=== PATIENT | female | born 1985 | race Two or more races ===

== ENCOUNTER 2019-01-12 15:23 | Inpatient (IN) | payer SELFPAY ==
[~2019-01-12] VITALS: Ht 143.5 cm; Wt 63.0 kg
[2019-01-12 16:14] LABS: BILIRUBIN,URINE NEGATIVE (NEG); CLARITY,URINE CLEAR; COLOR,URINE YELLOW; NITRITE,URINE NEGATIVE (NEG); PROTEIN,URINE NEGATIVE (NEG-TRACE); UROBILINOGEN,URINE 0.2 mg/dL (0.2 mg/dL)
[2019-01-12 16:22] LABS: BASO # 0.1 x10^3/uL (0.0-0.2); BASO % 1 % (0-3); EOS # 0.2 x10^3/uL (0.0-0.7); EOS % 3 % (0-3); HEMATOCRIT 40.6 % (36.0-47.0); HEMOGLOBIN 13.5 g/dL (12.0-15.5); LYMPH # 1.4 x10^3/uL (1.0-4.8); LYMPH % 22 % (24-48); MEAN CORPUSCULAR HEMOGLOBIN 30 pg (25-35); MEAN CORPUSCULAR HGB CONC 33 g/dL (31-37); MEAN CORPUSCULAR VOLUME 90 fL (79-100); MONO # 0.5 x10^3/uL (0.0-1.1); MONO % 7 % (0-9); NEUT # 4.2 x10^3uL (1.8-7.7); NEUT % 67 % (31-73); PLATELET COUNT 150 x10^3/uL (140-400); RED CELL DISTRIBUTION WIDTH 15.6 % (11.5-14.5); WHITE BLOOD COUNT 6.2 x10^3/uL (4.0-11.0)
[2019-01-12 16:22] LABS: BACTERIA,URINE MODERATE /HPF (0-FEW); RBC,URINE 0 /HPF (0-2); SQUAMOUS EPITHELIAL CELL,UR MOD /LPF
[2019-01-12 16:40] LABS: PLT ESTIMATE ADEQUATE (ADEQUATE)
[2019-01-12 16:46] LABS: ALBUMIN/GLOBULIN RATIO 0.7 (1.0-1.7); CALCIUM 8.4 mg/dL (8.5-10.1); CREATININE 0.6 mg/dL (0.6-1.0); GFR 114.4; POTASSIUM 3.9 mmol/L (3.5-5.1); TOTAL BILIRUBIN 0.3 mg/dL (0.2-1.0); TOTAL PROTEIN 7.1 g/dL (6.4-8.2)
[2019-01-12] MEDS ORDERED: fentaNYL PF VIAL 100 MCG/2 ML VIAL IV PRN (18:00)
[2019-01-12] MEDS ORDERED: IBUPROFEN 400 MG TABLET. PO PRN (18:00)
[2019-01-12] MEDS ORDERED: LIDOCAINE 1% PF 30 ML VIAL. INJ PRN (18:00)
[2019-01-12] MEDS ORDERED: OXYTOCIN 30 UNIT/500 ML PREMIX 500 ML IV PRN ×2 (18:00)
[2019-01-12] MEDS ORDERED: 0.9 % SODIUM CHLORIDE 10 ML DISP.SYRIN. IV PRN (18:00)
[2019-01-12 18:15] VITALS: BP 148/91
[2019-01-12] MEDS ORDERED: DINOPROSTONE 10 MG SUPP.VAG VG ONE (18:30)
[2019-01-12] MEDS: IV RINGERS,LACTATED 1000ML 1,000 ML IV PRN (18:43)
[2019-01-12] MEDS ORDERED: ACETAMINOPHEN 500 MG TABLET PO PRN (23:00)
[2019-01-13] MEDS: IV RINGERS,LACTATED 1000ML 1,000 ML IV PRN ×2 (01:44→22:38)
[2019-01-13] MEDS ORDERED: BUTORPHANOL 2 MG/ML VIAL. IV PRN (01:45)
[2019-01-13] MEDS ORDERED: L&D EPIDURAL SYRINGE 50 ML ONE (02:54)
[2019-01-13] MEDS ORDERED: ROPIVacaine 0.2% PF 10 ML VIAL. ONE ×2 (02:54→03:00)
[2019-01-13] MEDS ORDERED: L&D EPIDURAL 50 ML SYRINGE. ONE (03:00)
[2019-01-13] MEDS ORDERED: HYDROCORTISONE 1% TOPICAL OINTMENT 30GM TUBE. TP PRN (03:45)
[2019-01-13] MEDS ORDERED: BENZOCAINE 20% TOPICAL AEROSOL SPRAY 57GM CAN. TP PRN (03:45)
[2019-01-13] MEDS ORDERED: SIMETHICONE 80 MG TAB.CHEW PO PRN ×2 (03:45→09:00)
[2019-01-13] MEDS ORDERED: 0.9 % SODIUM CHLORIDE 10 ML DISP.SYRIN. IV PRN ×2 (03:45→09:00)
[2019-01-13] MEDS ORDERED: ACETAMINOPHEN 325 MG TABLET. PO PRN (03:45)
[2019-01-13] MEDS ORDERED: ZOLPIDEM 5 MG TABLET. PO PRN ×2 (03:45→09:00)
[2019-01-13] MEDS ORDERED: PHENYLEPH/MINERAL OIL/PETROLAT RECTAL OINTMENT 28GM TUBE. RC PRN (03:45)
[2019-01-13] MEDS ORDERED: OXYTOCIN 30 UNIT/500 ML PREMIX 500 ML IV PRN ×2 (03:45→09:00)
[2019-01-13] MEDS ORDERED: MAG HYDROX/ALUMINUM HYD/SIMETH 30 ML ORAL.SUSP PO PRN ×2 (03:45→09:00)
[2019-01-13] MEDS ORDERED: diphenhydrAMINE HCL 25 MG CAPSULE PO PRN (03:45)
[2019-01-13] MEDS ORDERED: MAGNESIUM HYDROXIDE 2,400 MG/30 ML ORAL.SUSP. PO PRN (03:45)
--- NOTE | 2019-01-13 03:55 | PDOC1 ---
OB - History Hx of Present Care: Good Care Ultrasounds: Normal mid trimester US Obstetrical Complications: Gestational Hypertension Medical Complications: None Past Family/Social History * Past Medical, Surgical, Family and Obstetric Histories reviewed from chart. Blood Type: O+ Rubella: Immune RPR/VDRL: Negative GBS Status: Positive HBsAG: Negative OB - Chief Complaint & HPI Date of Admission: Date of Admission: Jan 12, 2019 at 15:23 Chief Complaint/History : 5 Reason for admission: induction of labor Indication for induction: other (PIH) Admission Nurse Assessment Rev: Yes OB - Admission Exam Physical Exam Vitals: VS - Last 72 Hours, by Label Date Time Temp Pulse Resp B/P (MAP) Pulse Ox O2 Delivery O2 Flow Rate FiO2 01/13/19 01:44 20 Room Air 01/12/19 18:15 97.7 87 16 148/91 (110) Room Air 97.7 Heart: Regular Rate Lungs: Clear, Equal Abdomen: Gravid Extremities: Normal Pulses, No tenderness or swelling Reflexes: Normal Cervical Dilatation: 2cm Effacement: 0% Station: Ballotable Membranes: Intact Amniotic Fluid: Clear Heart Rate: Normal Accelerations: Accelerations Present Short Term Variability: Present Contractions on Admission: >10 Minutes Apart Intensity: Mild Assessment/Plan Assessment/Plan TIUP PIH Induction ACSVD JOHNATHAN SANCHEZ MD Jan 13, 2019 03:55
[2019-01-13] MEDS ORDERED: IBUPROFEN 400 MG TABLET. PO SCH (06:00)
[2019-01-13] MEDS ORDERED: PENICILLIN G K 5,000,000 UNIT in IV DEXTROSE 5% 100ML 100 ML IV ONE (06:00)
[2019-01-13] MEDS ORDERED: LIDOCAINE 2% PF 5 ML VIAL. ONE (06:20)
[2019-01-13] MEDS ORDERED: ROCURONIUM 100 MG/10 ML VIAL. ONE (07:59)
[2019-01-13] MEDS ORDERED: FERROUS SULFATE 325 MG TABLET. PO SCH (08:00)
[2019-01-13] MEDS ORDERED: GLYCOPYRROLATE 1 MG/5 ML VIAL. ONE (08:00)
[2019-01-13] MEDS ORDERED: ROCURONIUM 50 MG/5 ML VIAL. ONE (08:00)
[2019-01-13] MEDS ORDERED: miSOPROStol 200 MCG TABLET ONE ×2 (08:00→08:15)
[2019-01-13] MEDS ORDERED: NEOSTIGMINE 10 MG/10 ML VIAL. ONE (08:01)
[2019-01-13] MEDS ORDERED: DEXAMETHASONE SOD PHOS 4 MG/ML VIAL ONE (08:10)
[2019-01-13] MEDS ORDERED: ONDANSETRON PF 4 MG/2 ML VIAL. ONE (08:10)
[2019-01-13] MEDS ORDERED: KETOROLAC 30 MG/ML INJ FOR OR. INJ ONE (08:10)
[2019-01-13] MEDS ORDERED: ISOFLURANE 31 TO 60 MINUTES. IH ONE ×2 (08:20)
[2019-01-13] MEDS ORDERED: OXYTOCIN 10 UNIT/ML VIAL. ONE (08:27)
[2019-01-13] MEDS ORDERED: IBUPROFEN 400 MG TABLET. PO PRN (09:00)
[2019-01-13] MEDS ORDERED: ONDANSETRON PF 4 MG/2 ML VIAL. IV PRN (09:00)
[2019-01-13] MEDS ORDERED: diphenhydrAMINE ORAL ELIXIR 12.5 MG/5 ML ML PO PRN (09:00)
--- NOTE | 2019-01-13 09:00 | PDOC4 ---
OB Operative Note Date: Jan 13, 2019 PRE OP DIAGNOSIS: NRFHT (LOT arrest) POST OP DIAGNOSIS: Other (same) OPERATION PERFORMED: Darek KT Surgeon Dr. Wright Water Trainer Dr. Benavides Anesthesia: Gen Blood Loss 700 ml Specimen placenta and infant OB Findings: Position (Transverse), Sex, (arterial pH 6.7, and BE -21) Complications none Additional Remarks pt. stable. to be transferred to [facility] DEE WRIGHT Jr, MD Jan 13, 2019 09:00
--- NOTE | 2019-01-13 09:25 | OP ---
DATE OF SURGERY: PREOPERATIVE DIAGNOSES: 1. A 38-1/2 weeks intrauterine . 2. Gestational hypertension. 3. intolerance to labor. POSTOPERATIVE DIAGNOSES: 1. A 38-1/2 weeks intrauterine . 2. Gestational hypertension. 3. intolerance to labor. 4. Left occipital transverse arrest. PROCEDURE: Primary low transverse section. SURGEON: Dee Wright MD INTELLIGENCE MANAGER: Dr. Benavides. ANESTHESIA: GETA. ESTIMATED BLOOD LOSS: 700 mL. COMPLICATIONS: None. FINDINGS: Viable male infant. Arterial pH 6.7, base excess negative 21. 3-vessel cord placenta delivered manually. SUMMARY: A 33-year-old 5, para 3, A1, at 38-1/2 weeks, presented to Labor and Delivery for induction of labor secondary to gestational hypertension. The patient was placed on Cervidil for induction. The patient did go into active labor with Cervidil. She had dilated up to 9 cm and was in left occiput transverse arrest along with intolerance to labor. The decision was then made to do emergency section. The patient was counseled on risks, benefits and expectations and voiced clear understanding and agreed to proceed. DESCRIPTION OF PROCEDURE: The patient was taken to surgery suite and placed in dorsal supine position where she was prepped with ChloraPrep and draped in a sterile fashion. After adequate anesthesia, a Pfannenstiel skin incision was made with scalpel down to and through the fascia. Fascia was extended laterally using curved Carrillo scissors. The anterior and posterior fascia was dissected away from the abdominal rectus muscles using blunt dissection. The abdominal rectus muscle dissected bluntly at the midline. Peritoneum was entered bluntly as well. Bladder blade was used for retraction purposes along with the Dyer. Low transverse hysterotomy incision made with a scalpel down to the . The hysterotomy incision was extended laterally and superiorly digitally. The infant was in the left occiput transverse position and very low in the pelvis. Once elevated, the infant flipped to a breech presentation in which the legs and hips were delivered with fundal pressure. The was delivered down to the subscapular area. The arms were then flexed and delivered over the chest. The head was also delivered in atraumatic manner. Infant was suctioned with bulb syringe orally and nasally. Umbilical cord was clamped twice and cut and viable male infant was handed to waiting nursing staff. Umbilical cord blood and arterial pH gases were then obtained. Three-vessel cord placenta was delivered manually. The uterus was then exteriorized and cleared of clot and debris with moist lap. The hysterotomy incision was reapproximated using 1-0 Vicryl suture in running locked fashion and imbricated layer of 1-0 Vicryl suture in running fashion was performed. Three mqhagt-er-ieile sutures were placed using 4-0 Vicryl for better hemostasis over the hysterotomy incision. There was 800 mcg Cytotec that was placed intrauterinely prior to closure of the hysterotomy incision. The uterus then palpated firm. Fallopian tubes and ovaries appeared normal bilaterally. Posterior cul-de-sac was cleared of clot and debris with a moist lap. The uterus then returned to the abdomen. Pericolic gutters were cleared of clot and debris with moist lap. The hysterotomy incision was reviewed and was hemostatic. Victoriano was placed over the hysterotomy incision for better hemostasis. The peritoneum was then reapproximated using 1-0 Vicryl suture in running fashion. The muscle was reapproximated using 1-0 Vicryl suture in a mattress stitch. The fascia was reapproximated using a V-Loc suture in a running fashion. The skin was reapproximated using 4-0 Vicryl suture in subcuticular manner. The patient tolerated the procedure well, was sent to recovery room in stable condition. Sponge and needle count correct x 3. DEE WRIGHT MD DR: RHYS/radha JOB#: [id number] / [id number]
[2019-01-13] MEDS ORDERED: PENICILLIN G K 2,500,000 UNIT in IV DEXTROSE 5% 50 ML IV SCH (10:00)
[2019-01-13 11:45] VITALS: BP_SYST 101; BP_SYST 97; BP_DIAS 62; BP_DIAS 64
[2019-01-13 13:30] VITALS: BP 126/78
[2019-01-13 17:06] VITALS: BP 131/86
[2019-01-13] MEDS: KETOROLAC 30 MG/ML VIAL. IV PRN (20:00)
[2019-01-13 20:03] VITALS: BP 137/85
[2019-01-14 00:49] VITALS: BP 131/84
[2019-01-14] MEDS: IV RINGERS,LACTATED 1000ML 1,000 ML IV PRN (02:42)
[2019-01-14] MEDS: KETOROLAC 30 MG/ML VIAL. IV PRN (02:43)
[2019-01-14 05:00] VITALS: BP 128/80
[2019-01-14] MEDS: oxyCODONE/APAP 5/325 1 TAB TABLET PO PRN ×3 (05:34→16:19)
[2019-01-14] MEDS: DOCUSATE SODIUM 100 MG CAPSULE. PO PRN ×3 (05:34→20:14)
[2019-01-14 08:23] LABS: BASO % 0 % (0-3); EOS % 0 % (0-3); HEMATOCRIT 28.6 % (36.0-47.0); HEMOGLOBIN 9.8 g/dL (12.0-15.5); LYMPH % 12 % (24-48); MEAN CORPUSCULAR HEMOGLOBIN 32 pg (25-35); MEAN CORPUSCULAR HGB CONC 34 g/dL (31-37); MEAN CORPUSCULAR VOLUME 91 fL (79-100); MONO # 0.7 x10^3/uL (0.0-1.1); MONO % 9 % (0-9); NEUT # 6.6 x10^3uL (1.8-7.7); NEUT % 78 % (31-73); PLATELET COUNT 92 x10^3/uL (140-400); RED BLOOD COUNT 3.13 x10^6/uL (3.50-5.40); RED CELL DISTRIBUTION WIDTH 15.8 % (11.5-14.5); WHITE BLOOD COUNT 8.5 x10^3/uL (4.0-11.0)
--- NOTE | 2019-01-14 08:42 | PDOC ---
OB Progress Note Date of Service 01/14/19 Time of Evaluation 0840 Notes Pt. feeling well. Pain controlled. No complaints. Lab Laboratory Tests Test 01/12/19 16:00 01/12/19 16:05 01/12/19 18:30 01/14/19 07:50 Urine Collection Type Unknown Urine Color Yellow Urine Clarity Clear Urine pH 6.0 Urine Specific Charlotte 1.010 Urine Protein Negative mg/dL (NEG-TRACE) Urine Glucose (UA) Negative mg/dL (NEG) Urine Ketones (Stick) Negative mg/dL (NEG) Urine Blood Negative (NEG) Urine Nitrite Negative (NEG) Urine Bilirubin Negative (NEG) Urine Urobilinogen Dipstick 0.2 mg/dL (0.2 mg/dL) Urine Leukocyte Esterase Negative (NEG) Urine RBC 0 /HPF (0-2) Urine WBC 1-4 /HPF (0-4) Urine Squamous Epithelial Cells Mod /LPF Urine Bacteria Moderate /HPF (0-FEW) Urine Random Creatinine 36.0 mg/dL (Not Establ.) Urine Random Total Protein 12.6 mg/dL (Not Establ.) Urine Protein/Creatinine Ratio 350 mg/g (0-200) White Blood Count 6.2 x10^3/uL (4.0-11.0) 8.5 x10^3/uL (4.0-11.0) Red Blood Count 4.50 x10^6/uL (3.50-5.40) 3.13 x10^6/uL (3.50-5.40) Hemoglobin 13.5 g/dL (12.0-15.5) 9.8 g/dL (12.0-15.5) Hematocrit 40.6 % (36.0-47.0) 28.6 % (36.0-47.0) Mean Corpuscular Volume 90 fL (79-100) 91 fL (79-100) Mean Corpuscular Hemoglobin 30 pg (25-35) 32 pg (25-35) Mean Corpuscular Hemoglobin Concent 33 g/dL (31-37) 34 g/dL (31-37) Red Cell Distribution Width 15.6 % (11.5-14.5) 15.8 % (11.5-14.5) Platelet Count 150 x10^3/uL (140-400) 92 x10^3/uL (140-400) Neutrophils (%) (Auto) 67 % (31-73) 78 % (31-73) Lymphocytes (%) (Auto) 22 % (24-48) 12 % (24-48) Monocytes (%) (Auto) 7 % (0-9) 9 % (0-9) Eosinophils (%) (Auto) 3 % (0-3) 0 % (0-3) Basophils (%) (Auto) 1 % (0-3) 0 % (0-3) Neutrophils # (Auto) 4.2 x10^3uL (1.8-7.7) 6.6 x10^3uL (1.8-7.7) Lymphocytes # (Auto) 1.4 x10^3/uL (1.0-4.8) 1.0 x10^3/uL (1.0-4.8) Monocytes # (Auto) 0.5 x10^3/uL (0.0-1.1) 0.7 x10^3/uL (0.0-1.1) Eosinophils # (Auto) 0.2 x10^3/uL (0.0-0.7) 0.0 x10^3/uL (0.0-0.7) Basophils # (Auto) 0.1 x10^3/uL (0.0-0.2) 0.0 x10^3/uL (0.0-0.2) Platelet Estimate Adequate (ADEQUATE) Large Platelets Present Sodium Level 136 mmol/L (136-145) Potassium Level 3.9 mmol/L (3.5-5.1) Chloride Level 103 mmol/L (98-107) Carbon Dioxide Level 22 mmol/L (21-32) Anion Gap 11 (6-14) Blood Urea Nitrogen 14 mg/dL (7-20) Creatinine 0.6 mg/dL (0.6-1.0) Estimated GFR (Cockcroft-Gault) 114.4 BUN/Creatinine Ratio 23 (6-20) Glucose Level 92 mg/dL (70-99) Uric Acid 4.2 mg/dL (2.6-6.0) Calcium Level 8.4 mg/dL (8.5-10.1) Total Bilirubin 0.3 mg/dL (0.2-1.0) Aspartate Amino Transf (AST/SGOT) 27 U/L (15-37) Alanine Aminotransferase (ALT/SGPT) 27 U/L (14-59) Alkaline Phosphatase 235 U/L (46-116) Lactate Dehydrogenase 184 U/L (81-234) Total Protein 7.1 g/dL (6.4-8.2) Albumin 3.0 g/dL (3.4-5.0) Albumin/Globulin Ratio 0.7 (1.0-1.7) Treponema pallidum Antibody Nonreactive (Nonreactive) Laboratory Tests Test 01/14/19 07:50 White Blood Count 8.5 x10^3/uL (4.0-11.0) Red Blood Count 3.13 x10^6/uL (3.50-5.40) Hemoglobin 9.8 g/dL (12.0-15.5) Hematocrit 28.6 % (36.0-47.0) Mean Corpuscular Volume 91 fL (79-100) Mean Corpuscular Hemoglobin 32 pg (25-35) Mean Corpuscular Hemoglobin Concent 34 g/dL (31-37) Red Cell Distribution Width 15.8 % (11.5-14.5) Platelet Count 92 x10^3/uL (140-400) Neutrophils (%) (Auto) 78 % (31-73) Lymphocytes (%) (Auto) 12 % (24-48) Monocytes (%) (Auto) 9 % (0-9) Eosinophils (%) (Auto) 0 % (0-3) Basophils (%) (Auto) 0 % (0-3) Neutrophils # (Auto) 6.6 x10^3uL (1.8-7.7) Lymphocytes # (Auto) 1.0 x10^3/uL (1.0-4.8) Monocytes # (Auto) 0.7 x10^3/uL (0.0-1.1) Eosinophils # (Auto) 0.0 x10^3/uL (0.0-0.7) Basophils # (Auto) 0.0 x10^3/uL (0.0-0.2) Medications Current Medications Sodium Chloride (Normal Saline Flush) 3 ml QSHIFT PRN IV AFTER MEDS AND BLOOD DRAWS; Start 01/12/19 at 18:00; Stop 01/13/19 at 04:08; Status DC Ringer's Solution 1,000 ml @ 125 mls/hr Q8H PRN IV PER PROTOCOL Last administered on 01/14/19at 02:42; Start 01/12/19 at 18:00 Fentanyl Citrate (Fentanyl 2ml Vial) 100 mcg PRN Q1HR PRN IV Severe pain; Start 01/12/19 at 18:00 Lidocaine HCl (Xylocaine 1% Pf 30ml Vial) 30 ml 1X PRN PRN INJ SEE COMMENTS; Start 01/12/19 at 18:00; Stop 01/14/19 at 17:59 Oxytocin/Sodium Chloride 500 ml @ 0 mls/hr CONT PRN IV SEE I/O RECORD; Start 01/12/19 at 18:00; Stop 01/13/19 at 04:08; Status DC Oxytocin/Sodium Chloride 500 ml @ 0 mls/hr CONT PRN PRN IV Post delivery bleeding; Start 01/12/19 at 18:00; Stop 01/13/19 at 04:08; Status DC Ibuprofen (Motrin) 800 mg PRN Q6HRS PRN PO PAIN; Start 01/12/19 at 18:00; Stop 01/13/19 at 04:08; Status DC Penicillin G Potassium 1485869 unit/Dextrose 100 ml @ 100 mls/hr 1X ONCE IV ; Start 01/13/19 at 06:00; Stop 01/14/19 at 06:39; Status DC Penicillin G Potassium [id number] unit/Dextrose 50 ml @ 100 mls/hr Q4H IV ; Start 01/13/19 at 10:00; Stop 01/14/19 at 06:39; Status DC Dinoprostone (Cervidil) 10 mg 1X ONCE VG Last administered on 01/12/19at 18:42; Start 01/12/19 at 18:30; Stop 01/12/19 at 18:31; Status DC Acetaminophen (Tylenol) 1,000 mg PRN Q6HRS PRN PO MILD PAIN Last administered on 01/12/19at 22:59; Start 01/12/19 at 23:00; Stop 01/13/19 at 04:08; Status DC Butorphanol Tartrate (Stadol) 2 mg PRN Q1HR PRN IV SEVERE PAIN Last administered on 01/13/19at 01:44; Start 01/13/19 at 01:45 Ropivacaine (Naropin 0.2%) 10 ml STK-MED ONCE .ROUTE ; Start 01/13/19 at 02:54; Stop 01/13/19 at 02:55; Status DC Ropivacaine/ Fentanyl/NS 50 ml @ As Directed STK-MED ONCE .ROUTE ; Start 01/13/19 at 02:54; Stop 01/13/19 at 02:55; Status DC Sodium Chloride (Normal Saline Flush) 10 ml QSHIFT PRN IV AFTER MEDS AND BLOOD DRAWS; Start 01/13/19 at 03:45 Oxytocin/Sodium Chloride 500 ml @ 62.5 mls/hr CONT PRN IV SEE I/O RECORD Last administered on 01/13/19at 05:11; Start 01/13/19 at 03:45; Stop 01/13/19 at 11:45; Status DC Acetaminophen (Tylenol) 650 mg PRN Q6HRS PRN PO MILD PAIN / TEMP; Start 01/13/19 at 03:45 Ibuprofen (Motrin) 800 mg Q8HRS PO ; Start 01/13/19 at 06:00; Stop 01/13/19 at 06:00; Status DC Ibuprofen (Motrin) 800 mg PRN Q8HRS PRN PO INFLAMMATION/PAIN PREVENTION; Start 01/13/19 at 03:45 Magnesium Hydroxide (Milk Of Magnesia) 2,400 mg PRN DAILY PRN PO CONSTIPATION; Start 01/13/19 at 03:45 Al Hydroxide/Mg Hydroxide (Mylanta Plus Xs) 30 ml PRN Q4HRS PRN PO HEARTBURN / GAS; Start 01/13/19 at 03:45 Simethicone (Gas-X) 80 mg PRN AFTMEALHC PRN PO GAS / BLOATING; Start 01/13/19 at 03:45; Stop 01/13/19 at 09:11; Status DC Diphenhydramine HCl (Benadryl) 25 mg PRN Q6HRS PRN PO ITCHING; Start 01/13/19 at 03:45 Benzocaine (Americaine) 1 spray PRN QID PRN TP TOPICAL PAIN; Start 01/13/19 at 03:45 Phenyleph/Shark Oil/Min Oil/Petrol (Preparation H) 1 galen PRN QID PRN RC RECTAL PAIN; Start 01/13/19 at 03:45 Hydrocortisone (Cortaid) 1 galen PRN QID PRN TP PERINEAL PAIN; Start 01/13/19 at 03:45 Ferrous Sulfate (Feosol) 325 mg BIDWMEALS PO ; Start 01/13/19 at 08:00; Stop 01/13/19 at 09:12; Status DC Zolpidem Tartrate (Ambien) 5 mg PRN QHS PRN PO INSOMNIA, MAY REPEAT X1; Start 01/13/19 at 03:45; Stop 01/13/19 at 09:13; Status DC Info (Do NOT chart on this placeholder) 1 ea 1X PRN PRN MC SEE COMMENTS; Start 01/13/19 at 03:45 Lidocaine HCl (Lidocaine Pf 2% Vial) 5 ml STK-MED ONCE .ROUTE ; Start 01/13/19 at 06:20; Stop 01/13/19 at 06:21; Status DC Rocuronium [place] (Zemuron) 100 mg STK-MED ONCE .ROUTE ; Start 01/13/19 at 07:5 9; Stop 01/13/19 at 08:00; Status DC Rocuronium Madison (Zemuron) 50 mg STK-MED ONCE .ROUTE ; Start 01/13/19 at 08:00; Stop 01/13/19 at 08:04; Status DC Glycopyrrolate (Robinul) 1 mg STK-MED ONCE .ROUTE ; Start 01/13/19 at 08:00; Stop 01/13/19 at 08:04; Status DC Neostigmine Methylsulfate (Bloxiverz) 10 mg STK-MED ONCE .ROUTE ; Start 01/13/19 at 08:01; Stop 01/13/19 at 08:04; Status DC Ketorolac Tromethamine (Toradol For Or Only) 30 mg STK-MED ONCE INJ ; Start 01/13/19 at 08:10; Stop 01/13/19 at 08:11; Status DC Ondansetron HCl (Zofran) 4 mg STK-MED ONCE .ROUTE ; Start 01/13/19 at 08:10; Stop 01/13/19 at 08:11; Status DC Dexamethasone Sodium Phosphate (Decadron) 4 mg STK-MED ONCE .ROUTE ; Start 01/13/19 at 08:10; Stop 01/13/19 at 08:11; Status DC Misoprostol (Cytotec 200mcg Tab) 200 mcg STK-MED ONCE .ROUTE ; Start 01/13/19 at 08:15; Stop 01/13/19 at 08:16; Status DC Isoflurane (Isoflurane) 30 ml STK-MED ONCE IH ; Start 01/13/19 at 08:20; Stop 01/13/19 at 08:21; Status DC Isoflurane (Isoflurane) 30 ml STK-MED ONCE IH ; Start 01/13/19 at 08:20; Stop 01/13/19 at 08:21; Status DC Ropivacaine/ Fentanyl/NS (Ygzwpxfq-Gnqej-JA 3 Mcg-0.1%) 50 ml STK-MED ONCE .ROUTE ; Start 01/13/19 at 03:00; Stop 01/13/19 at 08:24; Status DC Ropivacaine (Naropin 0.2%) 10 ml STK-MED ONCE .ROUTE ; Start 01/13/19 at 03:00; Stop 01/13/19 at 08:24; Status DC Oxytocin (Pitocin) 10 unit STK-MED ONCE .ROUTE ; Start 01/13/19 at 08:27; Stop 01/13/19 at 08:28; Status DC Sodium Chloride (Normal Saline Flush) 3 ml QSHIFT PRN IV AFTER MEDS AND BLOOD DRAWS; Start 01/13/19 at 09:00 Oxytocin/Sodium Chloride 500 ml @ 125 mls/hr CONT PRN IV EXCESSIVE POST- BLEEDING; Start 01/13/19 at 09:00; Stop 01/13/19 at 16:59; Status DC Ibuprofen (Motrin) 800 mg PRN Q4HRS PRN PO INFLAMMATION; Start 01/13/19 at 09:00 Ondansetron HCl (Zofran) 4 mg PRN Q6HRS PRN IV NAUSEA/VOMITING; Start 01/13/19 at 09:00 Docusate Sodium (Colace) 100 mg PRN BID PRN PO CONSTIPATION Last administered on 01/14/19at 05:34; Start 01/13/19 at 09:00 Al Hydroxide/Mg Hydroxide (Mylanta Plus Xs) 30 ml PRN Q4HRS PRN PO HEARTBURN / GAS; Start 01/13/19 at 09:00 Simethicone (Gas-X) 80 mg PRN AFTMEALHC PRN PO GAS / BLOATING Last administered on 01/13/19at 20:00; Start 01/13/19 at 09:00 Diphenhydramine HCl (Benadryl Oral Elixir) 12.5 mg PRN Q6HRS PRN PO ITCHING; Start 01/13/19 at 09:00 Ferrous Sulfate (Feosol) 325 mg BIDWMEALS PO ; Start 01/13/19 at 17:00 Zolpidem Tartrate (Ambien) 5 mg PRN QHS PRN PO INSOMNIA, MAY REPEAT X1; Start 01/13/19 at 09:00 Oxycodone/ Acetaminophen (Percocet 5/325) 2 tab PRN Q4HRS PRN PO MODERATE PAIN, SEVERE PAIN Last administered on 01/14/19at 05:34; Start 01/13/19 at 09:00 Ketorolac Tromethamine (Toradol 30mg Vial) 30 mg PRN Q6HRS PRN IV PAIN Last administered on 01/14/19at 02:43; Start 01/13/19 at 09:00; Stop 01/18/19 at 08:59 Fentanyl Citrate 30 ml @ 0 mls/hr CONT PRN PRN IV PER PROTOCOL Last administered on 01/13/19at 10:07; Start 01/13/19 at 09:00 Exam ABd: soft, mild tenderness, fundus firm Bandage removed. Incision site: dry and intact Assessment POD#1 s/p c/s Plan of Care: Continue current Tx, Mgmt DEE YORK Jr, MD January 14, 2019 08:42
[2019-01-14] MEDS: FERROUS SULFATE 325 MG TABLET. PO SCH ×3 (10:00→16:20)
[2019-01-14] MEDS: IBUPROFEN 400 MG TABLET. PO PRN ×2 (10:29→20:14)
[2019-01-14 11:13] VITALS: BP 114/74
[2019-01-14 14:20] VITALS: BP 116/72
[2019-01-14 22:57] VITALS: BP 132/83
[2019-01-15] MEDS: IBUPROFEN 400 MG TABLET. PO PRN ×3 (04:24→17:48)
[2019-01-15] MEDS: FERROUS SULFATE 325 MG TABLET. PO SCH (07:42)
[2019-01-15] MEDS: DOCUSATE SODIUM 100 MG CAPSULE. PO PRN (07:42)
[2019-01-15] MEDS: oxyCODONE/APAP 5/325 1 TAB TABLET PO PRN ×2 (07:42→14:26)
[2019-01-15] MEDS ORDERED: BISACODYL 10 MG SUPP.RECT. PR PRN (09:15)
--- NOTE | 2019-01-15 10:48 | PDOC3 ---
OB DISCHARGE SUMMARY DATE OF ADMISSION: 01/13/19 DATE OF DISCHARGE: 01/15/19 REASON FOR ADMISSION: Induction of labor INTRAPARTUM PROCEDURES: : Low Cerv Trans DISCHARGE DIAGNOSIS: Term Delivered, Others (Gestational HTN; intolerance to labor) DISCHARGE INFORMATION: Activity (ad lee), Diet (regular), Instructions (pelvic rest x 6 wks, no lifting > 20 lbs. x 4 wks, no driving x 2 wks) HOSPITAL COURSE Term gestation with gestational HTN delivered via section due to intolerance to labor. DEE YORK Jr, MD January 15, 2019 10:48
[2019-01-15] MEDS ORDERED: IBUP-1027 PO (10:51)
[2019-01-15] MEDS ORDERED: FERR325T72 PO (10:51)
[2019-01-15] MEDS ORDERED: OXYC1TAB15 PO (10:51)
[2019-01-15] MEDS ORDERED: DOCU-109 PO (10:51)
--- NOTE | 2019-01-15 10:51 | DISCH ---
DISCHARGE INSTRUCTIONS Condition on Discharge Condition on Discharge: Stable Activity After Discharge Activity Instructions for Disc: Activity as tolerated Lifting Instructions after Dis: No heavy lifting Driving Instructions after Dis: No driving for 2 weeks Diet after Discharge Diet after Discharge: Regular Contacting the [facility] after DC Call your doctor for: Concerns you may have Follow-Up Follow up with: Dr. Wright in 2 weeks. DEE WRIGHT Jr, MD January 15, 2019 10:51
[2019-01-15 11:15] VITALS: BP 130/82
--- NOTE | 2019-01-15 13:15 | NUR ---
home instructions gone over with pt and her sig other as interprter. pt signed discharge for home. inst to call if any questions arise. script x 4 colace percoce iron and ibuprofen given
[2019-01-15 15:02] VITALS: BP 128/81
--- NOTE | 2019-01-15 18:06 | PATHOLOGY ---
[facility] Accession Number: [id number] . 01 Material submitted: . placenta - PLACENTA WITH PARTIAL CORD . 01 Clinical history: . IUP, c/s , 38 weeks 5 days EDC: 01/23/2019 Nonreassuring status, arrest of descent Apgars 5 greater than 100 bpm . 02 Diagnosis: 346 gram early term placenta of an estimated 38 weeks gestation with attached membranes and umbilical cord and separate segments of umbilical cord: - No significant pathologic abnormalities. LBQ/01/15/2019 . 02 Comment: There is no evidence of an acute chorioamnionitis or villitis. There are no infarcts. There is no evidence of vascular malperfusion. (JPM/db; 01/15/2019) . 02 Electronically signed: . Rainer Ceron MD, Pathologist NPI- [id number] . 01 Gross description: . The specimen is received in formalin labeled "Bhardwaj, Renita, placenta" and consists of an ovoid haney placenta measuring 15.9 x 13.5 x 2.4 cm and weighing 346 g after removal of membranes and umbilical cord. The membranes are pink-sterling, thin, and translucent. The surface is pink-sterling, glistening, well vascularized with a centrically inserted 3 vessel umbilical cord, 3.7 cm from edge. The amnion and chorion are moderately . The cord measures 7.9 cm in length and up to 1.0 cm in diameter. Received separately are 2 additional segments of umbilical cord measuring 13.1 cm in length and 1.0 cm in diameter and 25.3 cm in length and up to 1.5 cm in diameter. All 3 segments of cord are white-hughes with moderate twists. The maternal surface shows complete and intact cotyledons with a small amount of adherent blood clot (5-10 mL). Sectioning reveals a maroon-red and spongy parenchyma with no gross lesions. Cigarette Carton Sealer sections are submitted as follows: . A1: Periphery and membrane roll A2: Umbilical cord A3-A4: Full-thickness section (SDY; 01/14/2019) SYU/SYU . 02 Pathologist provided ICD-10: O82, Z3A.38, Z37.0 . 02 CPT . 430201 Specimen Comment: A courtesy copy of this report has been sent to Specimen Comment: [phone]. Specimen Comment: Report sent to Performed at: 01 [facility] [address] [place] [address] [address], [place] [id number] MD Manfred Hernandez MD Phone: [phone] Performed at: 02 [facility] [address] [place], [place] [id number] MD Rainer Ceron MD Phone: [phone]
== END 2019-01-15 17:55 | disposition home or self-care (01) | DRG 788 ==
LOC: OBSVTOIN 15:23 → 3 SO LND 15:23 → 3 NORTH 01-13 11:56
PROVIDERS: ADMIT Obstetrics & Gynecology; ATTEND Obstetrics & Gynecology
PROC: 10D00Z1 Extraction of Products of Conception, Low, Open Approach (ICD-10-PCS; principal; 2019-01-12)
DX: O77.9 Labor and delivery complicated by fetal stress, unspecified (principal); O13.4 Gestational [pregnancy-induced] hypertension without significant proteinuria, complicating childbirth; O64.0XX0 Obstructed labor due to incomplete rotation of fetal head, not applicable or unspecified; Z37.0 Single live birth; Z3A.38 38 weeks gestation of pregnancy
CPT/HCPCS: 36415; 80053; 81001; 82570; 83615; 84156; 84550; 85025; 86592; 86850; 86900; 86901; 87086; 88307; J1100; J1885; J2405; J2590; J2710; J2795; J3010; J3490; J7120